=== PATIENT | male | born 1955 | race Caucasian/White ===

== ENCOUNTER 2023-09-14 10:36 | Emergency (ER) | payer OTHER | END 2023-09-14 16:55 | LOC: CSHERS 10:36 → EEVIPCON 10:36 → CSHERS 16:55 | DX: J44.9 Chronic obstructive pulmonary disease, unspecified (principal); I11.0 Hypertensive heart disease with heart failure; I50.9 Heart failure, unspecified; I25.10 Atherosclerotic heart disease of native coronary artery without angina pectoris; Z79.899 Other long term (current) drug therapy; Z79.82 Long term (current) use of aspirin | CPT/HCPCS: 71045; 80053; 83880; 84484; 85025; 93005 ==